=== PATIENT | male | born 1965 | race Caucasian/White ===

== ENCOUNTER 2018-12-21 16:52 | Emergency (ER) | payer OTHER ==
[~2018-12-21] VITALS: Ht 182.9 cm; Wt 102.1 kg
[~2018-12-21 16:52] MED LIST: LISINOPRIL10 MG PO; MULTI-VITAMIN1 EACH
[2018-12-21] MEDS ORDERED: TETANUS/DIPHTHERIA TOX ADULT 0.5 ML SYR IM ONE (17:00)
--- NOTE | 2018-12-21 17:25 | NUR ---
PT REFUSING CT AT THIS TIME. JAMES CORONEL ENP MADE AWARE OF THIS. ORDERS RECEIVED TO CANCEL EXAM.
[2018-12-21] MEDS ORDERED: LIDOCAINE HCL 1% LOCAL INJ 20 ML VIAL INJ ONE (17:30)
[2018-12-21] MEDS ORDERED: HYDROCODONE/APAP 10MG-325MG TAB PO ONE (18:00)
--- NOTE | 2018-12-21 18:15 | NUR ---
PT RESTING IN BED IN SEMI FOWLERS, EYES CLOSED, BREATHING EVEN/UNLABORED, AT BEDSIDE AND CALL LIGHT IN EASY REACH.
--- NOTE | 2018-12-21 18:45 | NUR ---
DR. CAMERON AT BEDSIDE AT THIS TIME WITH JAMES CORONEL ENP FOR PATIENT EVAL.
[2018-12-21] MEDS ORDERED: LIDOCAINE 1% W/EPINEPHRINE 20 ML VIAL INJ ONE (19:00)
--- NOTE | 2018-12-21 19:00 | NUR ---
REPORT AND WALKING ROUNDS COMPLETED WITH KARLOS HERNANDEZ
--- NOTE | 2018-12-21 19:30 | NUR ---
PATIENT AT BEDSIDE WITH , PROCEDURE COMPLETED WITH STITCHING OF THE EAR, SUTURES ARE INTACT AND IN PLACE, NEUROLOGICAL STATUS-BINDU, AAX3, NO HEAD HEMATOMAS NOTED, PUPILS 3MM EACH SIDE, ANSWERING QUESTIONS CORRECTLY, NO SIGNS OF NEUROLOGICAL TRAUMA NOTED TO PATIENT. PATIENT HAS REFUSED CT SCAN OF HEAD/NECK, STREETCAR REPAIRER/MD/CHARGE NURSE AWARE, CHARGE NURSE ANDRA RN AT BEDSIDE WITH ME WITNESSING REFUSAL, JAMES CORONEL STREETCAR REPAIRER HAS DOCUMENTED REFUSAL ON HIS END. NO SIGNS OF NEUROLOGICAL TRAUMA, PATIENT IS NOT ON BLOOD THINNERS
[2018-12-21] MEDS ORDERED: BACITRACIN ZINC 0.9GM TP ONE ×2 (19:36→20:00)
[2018-12-21] MEDS ORDERED: BACITRACIN ZINC 15 GM OINT TOP ONE (20:00)
--- NOTE | 2018-12-22 19:15 | Operative Report ---
DATE OF PROCEDURE: 12/21/2018 SURGEON: Toby Hughes MD PREOPERATIVE DIAGNOSES: 1. Transection of left ear. 2. Scalp laceration. POSTOPERATIVE DIAGNOSES: 1. Transection of left ear. 2. Scalp laceration. PROCEDURE: Complex repair of left ear, 7 cm; simple repair of scalp laceration, 2.5 cm. ANESTHESIA: Local. HISTORY: The patient is a 53-year-old male, who earlier in the day slipped and fell and hit the left side of his head against the nightstand. He sustained a complete transection of the left ear from the root all the way out to the helical rim just superior to the external auditory meatus. The patient was seen in the ER and urgent consultation request for plastic surgery intervention is now requested. The risks, benefits, and alternatives of treatment were discussed with the patient and the family and they are prepared to undergo the procedure as outlined. PROCEDURE IN DETAIL: The ear was cleansed with alcohol wipes and then 12 mL of 1% Xylocaine with epinephrine was injected into the left ear and the scalp. After waiting appropriate amount of time for maximum vasoconstrictive and maximum analgesic effect, the left side of the head was prepped and draped with a Betadine solution and a sterile field was applied. The procedure was begun by assessing the injury. It was noted that the left ear was completely transected transversely just superior to the external auditory meatus all the way from the scalp to the helical rim. The cartilage was widely exposed. The wound was irrigated free of all hematoma and blood and then using 6-0 Prolene, the ear was repaired taking sure to line up the helical rim as well as the anti-helical rim and the kurt. Multiple interrupted horizontal mattress sutures were used both on the anterior surface and the posterior surface of the ear. The scalp that was adjacent to the root of the ear was repaired with 6-0 Prolene in interrupted simple fashion. After completion of the procedure, the ear was noted to be hemostatic, the anatomic alignment was satisfactory. Bactroban ointment, Xeroform guaze, and a sterile dressing were applied to the head and the left ear. The patient tolerated the procedure well. The estimated blood loss of procedure was minimal. He was discharged with a prescription for p.o. antibiotics and analgesics and given a followup wound check appointment in 24 to 48 hours. MD ALISHA Case/JUAN ALBERTO /[id number]
== END 2018-12-21 20:00 | disposition home or self-care (01) ==
LOC: ER 16:52
DX: S01.312A Laceration without foreign body of left ear, initial encounter (principal); S01.01XA Laceration without foreign body of scalp, initial encounter; W01.198A Fall on same level from slipping, tripping and stumbling with subsequent striking against other object, initial encounter; Y92.003 Bedroom of unspecified non-institutional (private) residence as the place of occurrence of the external cause
CPT/HCPCS: 90471; 90714; 99283; J2001